=== PATIENT | male | born 1995 | race Caucasian/White ===

== ENCOUNTER 2022-02-27 00:03 | Emergency (ER) | payer OTHER ==
[~2022-02-27] VITALS: Ht 170.2 cm; Wt 63.5 kg
[2022-02-27] MEDS ORDERED: AMOX500 PO (02:29)
== END 2022-02-27 02:43 | disposition home or self-care (01) ==
LOC: ER 00:03
DX: S06.9X9A Unspecified intracranial injury with loss of consciousness of unspecified duration, initial encounter (principal); S02.642A Fracture of ramus of left mandible, initial encounter for closed fracture; Y04.0XXA Assault by unarmed brawl or fight, initial encounter
CPT/HCPCS: 70110; 99283-25; A9270

== ENCOUNTER 2022-03-01 12:08 | Day surgery (SDC) | payer OTHER ==
[~2022-03-01] VITALS: Ht 170.2 cm; Wt 70.8 kg
[~2022-03-01 12:08] MED LIST: AMOX500 PO
--- NOTE | 2022-03-01 14:18 | NUR ---
03/01/22 1418 Gladis Dawson LIDOCAINE 1% 10 MLS MIXED & VERIFIED IN OR BY RNS WITH EPI 0.05 MLS PER ORDER TO MAKE LIDOCAINE 1% 1:200,000 FOR INJECTION AT OPSITE BY DR GLASGOW.
--- NOTE | 2022-03-01 15:29 | NUR ---
03/01/22 1529 SILVER VINSON REPORT GIVEN TO ARCENIO. FULL FENTANYL BOTTLE GIVEN TO ARCENIO TO ADMINISTER MED
== END 2022-03-01 16:15 | disposition home or self-care (01) ==
LOC: ORSCSDS 12:08
PROVIDERS: Otolaryngology
PROC: 2W31X9Z Immobilization of Face using Wire (ICD-10-PCS; principal; 2022-03-01 13:30)
PROC: 0NSVXZZ Reposition Left Mandible, External Approach (ICD-10-PCS; principal; 2022-03-01 13:30)
DX: S02.602A Fracture of unspecified part of body of left mandible, initial encounter for closed fracture (principal)
CPT/HCPCS: A9270; C1713; J0171; J1100; J2250; J2405; J2704; J3010; J7040; J7120